=== PATIENT | female | born 1945 | race Caucasian/White ===

== ENCOUNTER → 2016-06-02 | Outpatient (CLI) | payer OTHER, BC | LOC: BMCIMAGING 08:31 | DX: Z12.31 Encounter for screening mammogram for malignant neoplasm of breast (principal); Z85.3 Personal history of malignant neoplasm of breast; Z80.3 Family history of malignant neoplasm of breast | CPT/HCPCS: G0202-52 ==

== ENCOUNTER → 2017-03-10 | Outpatient (CLI) | payer OTHER, BC | LOC: BMCIMAGING 10:37 | PROVIDERS: ATTEND Family Medicine | DX: Z13.820 Encounter for screening for osteoporosis (principal) ==

== ENCOUNTER → 2017-06-03 | Outpatient (CLI) | payer OTHER, BC | LOC: BMCIMAGING 08:52 | PROVIDERS: ATTEND Family Medicine | DX: Z12.31 Encounter for screening mammogram for malignant neoplasm of breast (principal); Z90.11 Acquired absence of right breast and nipple; Z80.3 Family history of malignant neoplasm of breast ==

== ENCOUNTER → 2018-06-05 | Outpatient (CLI) | payer OTHER, BC | LOC: BMCIMAGING 12:07 | PROVIDERS: ATTEND Family Medicine | DX: Z12.31 Encounter for screening mammogram for malignant neoplasm of breast (principal) ==